=== PATIENT | female | born 1970 | race Hispanic/Latino ===

== ENCOUNTER 2019-03-08 16:51 | Emergency (ER) | payer BC ==
[2019-03-08 16:56] VITALS: BMI 27.8
--- NOTE | 2019-03-08 17:36 | C.PDOC ---
History Of Present Illness PGY-[address] Christianson Patient is a 49 year old female with pmhx of thyroid CA s/p total thyroidectomy presents to the ED for chest pain and upper abdominal pain and back pain that started suddenly about one hour ago while at a meeting with her boss. Patient state she skipped a meal today and tried to eat a sandwich to alleviate pain but did not go away. Denies similar symptoms in the past. Describes pain as sharp and pressure, 7/8, non radiating to upper extremity or shoulder. Patient denies fever, chills, dizziness, weakness, shortness of breath, nausea, vomiting, diarrhea, constipation, urinary symptoms. <Candido Vela - Last Filed: 03/08/19 20:33> Patient seen and examined. states that she had sudden onset of epigastric pain that radiates through to her back and around her upper abdomen. Associated with nausea and causing her to feel sweaty. She denies prior history of similar pain. She has no reflux symptoms. The pain is worsening while in the ED and increases with sitting or lying supine. <Misty Christianson - Last Filed: 03/08/19 20:41> History Per: Patient History/Exam Limitations: no limitations Onset/Duration Of Symptoms: Hrs Current Symptoms Are (Timing): Still Present Severity: Moderate Pain Scale Rating Of: 7 Quality: Sharp, Dull, Tightness Associated Symptoms: denies: Nausea, Dyspnea, Syncope Exacerbating Factors: None Alleviating Factors: None <Candido Vela - Last Filed: 03/08/19 20:33> <Misty Christianson - Last Filed: 03/08/19 20:41> Time Seen by Provider: 03/08/19 17:12 Chief Complaint (Nursing): Chest Pain Past Medical History Vital Signs: Last Vital Signs Temp 98.6 F 03/08/19 16:58 Pulse 70 03/08/19 16:58 Resp 16 03/08/19 16:58 BP 162/102 H 03/08/19 16:58 Pulse Ox 100 03/08/19 16:58 Primary Care Provider: Clinic[facility] - Medical History Other PMH: Thyroid CA Surgical History: Cholecystectomy Other Surgeries: thyroidectomy Family History: States: No Known Family Hx - Social History Hx Tobacco Use: No Hx Alcohol Use: Yes (>5 glasses of wine weekend) Hx Substance Use: No - Immunization History Hx Tetanus Toxoid Vaccination: No Hx Influenza Vaccination: No Hx Pneumococcal Vaccination: No <Candido Vela - Last Filed: 03/08/19 20:33> Vital Signs: Last Vital Signs Temp 98.6 F 03/08/19 16:58 Pulse 70 03/08/19 16:58 Resp 16 03/08/19 16:58 BP 162/102 H 03/08/19 16:58 Pulse Ox 100 03/08/19 17:59 <Misty Christianson - Last Filed: 03/08/19 20:41> Review Of Systems Constitutional: Negative for: Fever, Chills, Weakness Eyes: Negative for: Vision Change Cardiovascular: Positive for: Chest Pain. Negative for: Palpitations Respiratory: Negative for: Cough, Shortness of Breath Gastrointestinal: Positive for: Abdominal Pain. Negative for: Nausea, Vomiting, Diarrhea, Constipation Genitourinary: Negative for: Dysuria, Frequency Musculoskeletal: Positive for: Back Pain. Negative for: Shoulder Pain, Arm Pain Skin: Negative for: Rash Neurological: Negative for: Weakness, Numbness, Incoordination, Change in Speech, Dizziness <Candido Vela - Last Filed: 03/08/19 20:33> Physical Exam - Physical Exam Appears: Non-toxic, No Acute Distress Skin: Normal Color Head: Atraumatic, Normacephalic Eye(s): bilateral: Normal Inspection, PERRL, EOMI Oral Mucosa: Moist Throat: Normal Neck: Normal ROM, Supple Chest: No Tenderness Cardiovascular: Rhythm Regular Respiratory: Normal Breath Sounds, No Wheezing Gastrointestinal/Abdominal: Normal Exam, Bowel Sounds, Tenderness (mild tendern ess right upper quadrant, epigastric and left upper quadrant ) Back: Normal Inspection, No CVA Tenderness, No Vertebral Tenderness, No Paraspinal Tenderness Extremity: Normal ROM, No Tenderness, No Swelling Neurological/Psych: Oriented x3, Normal Speech, Normal Cognition, Normal Cranial Nerves, Normal Motor, Normal Sensation <Candido Vela - Last Filed: 03/08/19 20:33> ED Course And Treatment - Laboratory Results Result Diagrams: 03/08/19 17:56 03/08/19 17:56 ECG: Viewed By Me ECG Rhythm: Sinus Rhythm Interpretation Of EC, sinus rhythm with short RI, no STEMI Rate From EC O2 Sat by Pulse Oximetry: 100 - Radiology CXR: Read By Radiologist CXR Interpretation: Yes: No Acute Disease <Candido Vela - Last Filed: 03/08/19 20:33> - Laboratory Results Result Diagrams: 03/08/19 17:56 03/08/19 17:56 Lab Results: Troponin I < 0.0120 ng/mL (0.00-0.120) 03/08/19 17:56 Total Bilirubin 0.9 mg/dL (0.2-1.3) 03/08/19 17:56 AST 33 U/L (14-36) 03/08/19 17:56 ALT 25 U/L (9-52) 03/08/19 17:56 Alkaline Phosphatase 70 U/L (38-126) 03/08/19 17:56 Total Protein 8.2 g/dL (6.3-8.3) 03/08/19 17:56 Albumin 4.6 g/dL (3.5-5.0) 03/08/19 17:56 Globulin 3.6 gm/dL (2.2-3.9) 03/08/19 17:56 Albumin/Globulin Ratio 1.3 (1.0-2.1) 03/08/19 17:56 Lipase 95 U/L (23-300) 03/08/19 17:56 Urine Color Yellow (YELLOW) 03/08/19 18:12 Urine Clarity Hazy (Clear) 03/08/19 18:12 Urine pH 5.0 (5.0-8.0) 03/08/19 18:12 Ur Specific [place] 1.020 (1.003-1.030) 03/08/19 18:12 Urine Protein Negative mg/dL (NEGATIVE) 03/08/19 18:12 Urine Glucose (UA) Normal mg/dL (Normal) 03/08/19 18:12 Urine Ketones 1+ mg/dL (NEGATIVE) H 03/08/19 18:12 Urine Blood 1+ (NEGATIVE) H 03/08/19 18:12 Urine Nitrate Negative (NEGATIVE) 03/08/19 18:12 Urine Bilirubin Negative (NEGATIVE) 03/08/19 18:12 Urine Urobilinogen Normal mg/dL (0.2-1.0) 03/08/19 18:12 Ur Leukocyte Esterase Neg Vania/uL (Negative) 03/08/19 18:12 Urine WBC (Auto) 3 /hpf (0-5) 03/08/19 18:12 Urine RBC (Auto) 4 /hpf (0-3) H 03/08/19 18:12 Ur Squamous Epith Cells 10 /hpf (0-5) H 03/08/19 18:12 Urine Bacteria Occ (<OCC) H 03/08/19 18:12 Lab Interpretation: No Acute Changes ECG: Interpreted By Md - Radiology CXR: Viewed By Md - CT Scan/US US Abd Other Rad Studies (CT/US): Read By Radiologist, Radiology Report Reviewed CT/US Interpretation: EXAM: US Abdomen, Right Upper Quadrant. CLINICAL HISTORY: Epigastric pain , hx cholecystectomy. TECHNIQUE: Right upper quadrant sonography performed with image documentation. COMPARISON: None provided. FINDINGS: LIVER: There is fatty infiltration of the liver. GALLBLADDER: Gallbladder surgically removed. COMMON BILE DUCT: No dilation. PANCREAS: The distal pancreas is obscured by bowel gas. The visualized portion of the pancreas appears within normal limits. RIGHT KIDNEY: Unremarkable. Normal renal contours. No renal mass or calculus. No hydronephrosis. IMPRESSION: Fatty infiltration of liver. Status post cholecystectomy. . Electronically signed on March 08, 2019 8:11:21 PM EDT by: Teodoro Chowdhury M.D., Certified by [facility], Diagnostic Radiology. Reevaluation Time: 20:38 Reassessment Condition: Improved (Painfree after IV Toradol. 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 Will make a follow up appointment tomorrow.) <Misty Christianson - Last Filed: 03/08/19 20:41> Medical Decision Making Medical Decision Makin49 year old female with pmhx of thyroid CA s/p thyroidectomy, presents with sudden onset chest pressure, pain and upper abdominal pain. Mild tenderness on right and left upper quadrant and epigastric area. R/O cardiac etiology - EKG - Chest Xray 2 view - Blood work - CMP, CBC , trops, lipase - U/A 18:00 - patient complaining of chest and upper abd pain, Toradol 15 mg IVP x 1 given, U/S abdomen ordered, will follow up results, trops negative, lipase wnl 20:00 - PAtient re evaluated, states pain has resolved, 0/10 pain. prelim abd U/S report shows fatty infilitration of liver, s/p cholecystectomy, otherwise unremarkable. Plan discussed with Dr Sammy Vela, PGY-1 <Candido Vela - Last Filed: 03/08/19 20:33> Disposition <Candido Vela - Last Filed: 03/08/19 20:33> Counseled Patient/Family Regarding: Studies Performed, Diagnosis, Need For Followup - Disposition Disposition Time: 20:39 <Misty Christianson - Last Filed: 03/08/19 20:41> - Disposition Referrals: [facility] [Outside] Disposition: HOME/ ROUTINE Condition: IMPROVED Instructions: Acute Abdomen (Belly Pain), Adult (DC) Forms: [facility] (Wallisian) - Clinical Impression Clinical Impression: Epigastric abdominal pain
--- NOTE | 2019-03-08 17:54 | RAD ---
Date of service: 03/08/2019 HISTORY: Chest pain COMPARISON: No prior. TECHNIQUE: Chest PA and lateral FINDINGS: LINES AND TUBES: None. LUNG AND PLEURA: The lungs are well inflated and clear. No pleural effusion or pneumothorax. HEART AND MEDIASTINUM: The heart is not enlarged. No aortic atherosclerotic calcifications present. The hilar and mediastinal contours are within normal limits. SKELETAL STRUCTURES: The bony structures are within normal limits for the patient's age. VISUALIZED UPPER ABDOMEN: Normal. OTHER FINDINGS: None. IMPRESSION: No active pulmonary disease.
[2019-03-08 18:01] LABS: BASO # 0.1 K/uL (0.0-0.2); BASO % 0.6 % (0.0-2.0); EOS # 0.1 K/uL (0.0-0.7); EOS % 0.5 % (0.0-4.0); HEMOGLOBIN 13.9 g/dL (11.0-16.0); LYMPH # 1.5 K/uL (1.0-4.3); LYMPH % 15.3 % (20.0-40.0); MEAN CELL VOLUME 94.1 fL (81.0-99.0); MEAN CORPUSCULAR HEMOGLOBIN 32.3 pg (27.0-31.0); MEAN CORPUSCULAR HGB CONC 34.3 g/dL (33.0-37.0); MEAN PLATELET VOLUME 10.4 fL (7.2-11.7); MONO # 0.7 K/uL (0.0-0.8); MONO % 6.7 % (0.0-10.0); NEUT # 7.7 K/uL (1.8-7.0); NEUT % 76.9 % (50.0-75.0); NRBC % 0.1 % (0.0-2.0); RBC 4.3 Mil/uL (3.80-5.20); RED CELL DISTRIBUTION WIDTH 14.9 % (11.5-14.5); WHITE BLOOD COUNT 10.1 K/uL (4.8-10.8)
[2019-03-08 18:13] LABS: ALB/GLOB RATIO 1.3 (1.0-2.1); ALBUMIN 4.6 g/dL (3.5-5.0); ALT/SGPT 25 U/L (9-52); AST/SGOT 33 U/L (14-36); BLOOD UREA NITROGEN 12 mg/dL (7-17); CALCIUM 9.7 mg/dl (8.6-10.4); GFR NON-AFRICAN AMERICAN > 60; LIPASE 95 U/L (23-300)
[2019-03-08 18:19] LABS: SQUAMOUS EPITHIAL 10 /hpf (0-5); URINE BACTERIA OCC (<OCC); URINE BILIRUBIN NEGATIVE (NEGATIVE); URINE BLOOD 1+ (NEGATIVE); URINE CLARITY Hazy (Clear); URINE COLOR Yellow (YELLOW); URINE GLUCOSE (UA) NORMAL (Normal); URINE LEUKOCYTE ESTERASE NEG Leu/uL (Negative); URINE PROTEIN NEGATIVE (NEGATIVE); URINE UROBILINOGEN NORMAL mg/dL (0.2-1.0)
[2019-03-08 20:14] VITALS: TEMP 98.4
[2019-03-08 21:00] VITALS: BP 148/94; PULSE 96; RESP 18; O2SAT 99
--- NOTE | 2019-03-09 09:05 | US ---
Date of service: 03/08/2019 HISTORY: epigastric pain, Hx cholecystectomy COMPARISON: None. TECHNIQUE: Grayscale imaging was performed. FINDINGS: LIVER: Measures 13.6 cm. There is diffuse increased echogenicity of the liver parenchyma. No mass. No intrahepatic bile duct dilatation. GALLBLADDER: Surgically absent. COMMON BILE DUCT: Measures 5.1 mm. No stones. No dilatation. PANCREAS: Unremarkable as visualized. No mass. No ductal dilatation. RIGHT KIDNEY: Measures 12.2cm. Normal echogenicity. No calculus, mass, or hydronephrosis. LEFT KIDNEY: Measures 12.5cm. Normal echogenicity. No calculus, mass, or hydronephrosis. SPLEEN: Normal in size and contour. No mass. AORTA: No aneurysmal dilatation. IVC: Unremarkable. OTHER FINDINGS: None. IMPRESSION: Fatty liver. Status post cholecystectomy. A preliminary report was provided by [employer].
--- NOTE | 2019-03-10 14:05 | CARD ---
APPROVED REPORT Date of service: 03/08/2019 EKG Measurement Heart [id number] <Conclusion> Sinus rhythm with short [place] Otherwise normal ECG
== END 2019-03-08 21:07 | disposition home or self-care (01) ==
LOC: C.ER 16:51
DX: R10.13 Epigastric pain (principal)
CPT/HCPCS: 71046; 76700; 80053; 81001; 83690; 84484; 85025; 93005; 96374; 99285; J1885